=== PATIENT | male | born 1990 | race Caucasian/White ===

== ENCOUNTER 2022-04-20 19:51 | Emergency (ER) | payer BC, OTHER ==
[~2022-04-20] VITALS: Ht 172.7 cm; Wt 63.6 kg
[2022-04-20] MEDS ORDERED: diphenhydrAMINE 50 mg/ml inj IV ONE (20:25)
[2022-04-20] MEDS ORDERED: methylPREDNISolone sod succ 125mg/2ml vial IV ONE (20:25)
[2022-04-20] MEDS ORDERED: LORazepam 2 mg/ml vial IV ONE (20:25)
[2022-04-20] MEDS ORDERED: famotidine/PF 10 mg/ml inj IV ONE (20:25)
[2022-04-20] MEDS ORDERED: epiNEPHrine 1 mg/ml inj SQ STA (20:31)
[2022-04-20] MEDS ORDERED: ondansetron/PF 4mg/2ml inj IV ONE (20:35)
[2022-04-20] MEDS ORDERED: ringers solution, lacted 1,000 ML IV ONE ×2 (20:50→22:05)
[2022-04-20 21:46] LABS: BASOPHILS # (AUTO) 0.1 X10'3 (0-0.2); BASOPHILS % (AUTO) 0.6 % (0-1); EOSINOPHILS % (AUTO) 0 % (0-6); HEMATOCRIT 46.2 % (42.0-52.0); HEMOGLOBIN 16.1 g/dl (14.0-17.9); LYMPHOCYTES # (AUTO) 0.8 X10'3 (1.1-4.8); LYMPHOCYTES % (AUTO) 4.2 % (21-51); MEAN CORPUSCULAR HEMOGLOBIN 30.1 PG (27.0-31.0); MEAN CORPUSCULAR HGB CONC 34.8 g/dL (33.0-36.5); MEAN CORPUSCULAR VOLUME 86.6 FL (78-98); MEAN PLATELET VOLUME 8.5 FL (7.4-10.4); MONOCYTES # (AUTO) 1.2 X10'3 (0-0.9); MONOCYTES % (AUTO) 6.6 % (2-12); NEUTROPHILS # (AUTO) 16.6 X10'3 (1.8-7.7); NEUTROPHILS % (AUTO) 88.6 % (42-75); PLATELET COUNT 231 X10'3 (140-440); RED BLOOD COUNT 5.33 X10'6 (4.70-6.10); RED CELL DISTRIBUTION WIDTH 12.9 % (11.5-14.5); WHITE BLOOD COUNT 18.7 X10'3 (4.5-11.0)
[2022-04-20 21:54] LABS: ALANINE AMINOTRANSFERASE 19 U/L (12-78); ALBUMIN 4.3 G/DL (3.4-5.0); ALBUMIN/GLOBULIN RATIO 1.3 (1.1-1.5); ALKALINE PHOSPHATASE 43 IU/L (46-116); ANION GAP 16 (8-16); ASPARTATE AMINO TRANSFERASE 18 U/L (10-37); BILIRUBIN,TOTAL 1.1 MG/DL (0.1-1.0); BLOOD UREA NITROGEN 14 MG/DL (7-18); BUN/CREATININE RATIO 10.4 (5.4-32.0); CALCIUM 9.3 MG/DL (8.5-10.1); CHLORIDE 101 MMOL/L (99-107); CREATININE 1.34 MG/DL (0.60-1.10); GLUCOSE 145 MG/DL (70-104); POTASSIUM 3.1 MMOL/L (3.5-5.1); SODIUM 138 MMOL/L (135-145); TOTAL CARBON DIOXIDE 20.6 MMOL/L (24-32); TOTAL PROTEIN 7.6 G/DL (6.4-8.2); eGFR 61 ML/MIN
[2022-04-20 23:48] LABS: CLARITY,URINE CLEAR (Clear); COLOR,URINE YELLOW (Yellow); GLUCOSE, URINE NEGATIVE (Neg); KETONES,URINE >=80 mg/dl (Neg); LEUKOCYTE ESTERASE ,URINE NEGATIVE (Neg); NITRITES, URINE NEGATIVE (Neg); OCCULT BLOOD,URINE NEGATIVE (Neg); PROTEIN,URINE NEGATIVE (Neg); UROBILINOGEN,URINE 0.2 E.U/dL (0.2-1.0)
[2022-04-20 23:53] LABS: URINE AMPHETAMINE SCREEN NEGATIVE (Neg); URINE BARBITUATE SCREEN NEGATIVE (Neg); URINE BENZODIAZEPINES SCREEN NEGATIVE (Neg); URINE CANNABINOID SCREEN NEGATIVE (Neg); URINE COCAINE SCREEN NEGATIVE (Neg); URINE METHADONE SCREEN NEGATIVE (Neg); URINE OPIATE SCREEN NEGATIVE (Neg); URINE PHENCYCLIDINE SCREEN NEGATIVE (Neg)
[2022-04-20 23:54] LABS: UA COLLECTION TYPE URINAL
[2022-04-21] MEDS ORDERED: PRED20TA PO (01:59)
[2022-04-21] MEDS ORDERED: EPIN0.3P3 IM (01:59)
[2022-04-21 02:53] VITALS: BP 93/53
== END 2022-04-21 02:58 | disposition home or self-care (01) ==
LOC: ER 19:52
DX: T47.8X1A Poisoning by other agents primarily affecting gastrointestinal system, accidental (unintentional), initial encounter (principal); R11.2 Nausea with vomiting, unspecified; R19.7 Diarrhea, unspecified; Z79.899 Other long term (current) drug therapy; Y92.89 Other specified places as the place of occurrence of the external cause
CPT/HCPCS: 36415; 71045; 80053; 80305; 81003; 83605; 83880; 84484; 85025; 93005; 96361; 96372; 96374; 96375; 99291; J0171; J1200; J2060; J2405; J2930; J3490; J7120